=== PATIENT | male | born 1960 | race Caucasian/White ===

== ENCOUNTER 2016-06-09 16:35 | Inpatient (IN) | payer OTHER ==
[2016-06-09] MEDS ORDERED: ONDANSETRON HCL 4 MG/2 ML VIAL IV ONE (16:53)
[2016-06-09] MEDS ORDERED: HYDROmorphone 1 MG INJECTION IV ONE ×3 (16:53→20:47)
[2016-06-09] MEDS ORDERED: NS 1,000 ML IV ONE ×2 (16:53→19:38)
[2016-06-09] MEDS ORDERED: DIAZEPAM 10 MG/2 ML TUBEX IV ONE ×2 (16:59→19:38)
[2016-06-09] MEDS ORDERED: FENTANYL 100 MCG/2 ML VIAL IV ONE ×2 (17:32→18:30)
[2016-06-09 17:38] LABS: AUTOMATED BASOPHIL 0.5 % (0-2); AUTOMATED EOSINOPHIL 0.2 % (0-5); AUTOMATED LYMPH 9.6 % (17-44); AUTOMATED MONOCYTE 7.1 % (3-10); AUTOMATED NEUTROPHIL 82.6 % (45-76); MPV 9.6 fL (7.4-10.4)
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
[2016-06-09 17:50] LABS: BLOOD UREA NITROGEN 24 MG/DL (9-20); CALCIUM 9.7 MG/DL (8.4-10.2); CALCULATED OSMOLALITY 275 MOs/Kg (270-290); CHLORIDE 102 mEq/L (98-107); GLUCOSE 94 MG/DL (70-99); SODIUM LEVEL 141 mEq/L (137-146); TOTAL PROTEIN 7.8 G/DL (6.3-8.2)
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
[2016-06-09] MEDS ORDERED: CYCLOBENZAPRINE 10 MG TAB PO ONE (19:23)
[2016-06-09 19:34] LABS: ALL NEG? NO
[2016-06-09 19:39] LABS: LEUKOCYTES/URINE NEG (NEGATIVE); NITRITE/URINE NEG (NEGATIVE); URINE OCCULT BLOOD 1+ (NEG/TRACE)
[2016-06-09 19:41] LABS: MDMA* NEG (NEGATIVE); METHAMPHETAMINES NEG (NEGATIVE); OXYCODONE *POSITIVE* (NEGATIVE)
[2016-06-09] MEDS ORDERED: PROMETHAZINE 25 MG/ML VIAL IV PRN (20:57)
[2016-06-09] MEDS ORDERED: ZOLPIDEM TARTRATE 5 MG TAB PO PRN (20:57)
[2016-06-09] MEDS ORDERED: OXYCODONE HCL 5 MG TABLET PO PRN (20:57)
[2016-06-09] MEDS ORDERED: NALOXONE 0.4 MG/ML AMPULE IV SCH (21:00)
[2016-06-09] MEDS: OXYCODONE HCL 5 MG TABLET PO PRN (21:49)
[2016-06-09] MEDS: Docusate Sodium 100 MG CAP PO SCH (21:49)
[2016-06-09] MEDS ORDERED: Pharmacy Change IV Fluid Rate to KVO XX SCH (22:00)
[2016-06-09] MEDS ORDERED: Vaccine Screening Complete SCH (23:00)
[2016-06-10] MEDS: HYDROmorphone 1 MG INJECTION IV PRN ×4 (01:00→12:29)
[2016-06-10] MEDS: SODIUM CHLORIDE 0.9% 3 ML FLUSH FLUSH SCH ×2 (01:12→18:21)
[2016-06-10] MEDS: OXYCODONE HCL 5 MG TABLET PO PRN ×2 (01:18→06:03)
[2016-06-10] MEDS ORDERED: DIAZEPAM 10 MG/2 ML TUBEX IV PRN ×2 (02:15→02:16)
[2016-06-10] MEDS: OXYCODONE (OxyCONTIN) 10 MG TAB PO SCH ×3 (02:21→18:21)
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
[2016-06-10] MEDS ORDERED: DIPHENHYDRAMINE 50 MG/ML VIAL IV ONE (08:00)
[2016-06-10] MEDS ORDERED: FLU VACCINE (Afluria) 0.5 ML DOSE IM ONE (08:00)
[2016-06-10] MEDS ORDERED: DIAZEPAM 10 MG/2 ML TUBEX IM PRN ×2 (09:48)
[2016-06-10] MEDS: ONDANSETRON HCL 4 MG/2 ML VIAL IV PRN (11:46)
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
--- NOTE | 2016-06-10 12:16 | DIRPT ---
CLINICAL DATA: Chronic back pain worsening over the past 3 weeks. EXAM: MRI THORACIC SPINE WITHOUT AND WITH CONTRAST TECHNIQUE: Multiplanar and multiecho pulse sequences of the thoracic spine were obtained without and with intravenous contrast. CONTRAST: 17 cc MultiHance COMPARISON: None. FINDINGS: Normal overall alignment of thoracic vertebral bodies. They demonstrate normal marrow signal except for endplate reactive changes at T4-5 and a large hemangioma and T7. The facets are normally aligned. No foraminal lesions. The thoracic spinal cord demonstrates normal signal intensity. No cord lesions or syrinx. Bilateral airspace disease is noted in the lungs along with small effusions. Recommend clinical correlation and chest x-ray for correlation. Degenerative cervical spondylosis is noted with multilevel disc disease and facet disease. Small right paracentral disc protrusion at T2-3 with minimal impression on the ventral thecal sac. Shallow broad-based disc protrusion at T4-5 with flattening of the ventral thecal sac and narrowing of the ventral CSF space. Focal right paracentral disc protrusion at T5-6. Paracentral disc protrusions bilaterally at T6-7 with minimal impression on the thecal sac. Shallow disc protrusions paracentrally bilaterally at T7-8 with mild impression on the thecal sac. Focal central and slightly right paracentral disc protrusion at T9-10. IMPRESSION: Degenerative of disc disease and facet disease in the thoracic spine but normal alignment and no acute bony findings. Multilevel thoracic disc protrusions as detailed above. Electronically Signed By: Robert Jimenez M.D. On: 06/10/2016 12:13
[2016-06-10] MEDS: TAMSULOSIN HCL 0.4 MG CAP PO SCH (12:28)
[2016-06-10] MEDS: ACETAMINOPHEN 325 MG/TAB TABLET PO PRN ×2 (12:31→16:17)
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
[2016-06-10] MEDS ORDERED: NS 50 ML IV ONE (16:13)
[2016-06-10] MEDS ORDERED: HYDROCODONE 5 MG/ACETAMIN 325 MG TAB PO PRN (18:51)
[2016-06-10] MEDS ORDERED: TRAMADOL HCL 50 MG TAB PO PRN (18:51)
[2016-06-10] MEDS: METAXALONE 800 MG TAB PO PRN (21:32)
[2016-06-10] MEDS: GABAPENTIN 300 MG CAP PO SCH (21:32)
[2016-06-10] MEDS: Docusate Sodium 100 MG CAP PO SCH (21:32)
[2016-06-10] MEDS: ZOLPIDEM TARTRATE 5 MG TAB PO PRN (23:12)
[2016-06-11] MEDS: OXYCODONE (OxyCONTIN) 10 MG TAB PO SCH ×2 (03:53→11:04)
[2016-06-11] MEDS: METAXALONE 800 MG TAB PO PRN ×2 (05:17→16:18)
[2016-06-11] MEDS: SODIUM CHLORIDE 0.9% 3 ML FLUSH FLUSH SCH ×2 (05:17→18:32)
[2016-06-11 07:24] LABS: MPV 8.9 fL (7.4-10.4)
--- NOTE | 2016-06-11 07:25 | PCM.ORTHBL ---
- Subjective Daily Assessment - Patient: Reports: No new complaints, Still having pain, Tolerating Regular Diet, Nausea, Other (Denies chest pain. No numbness or tingling in LE.). Denies: Shortness of breath, Vomiting - Objective / Physical Exam Vital Signs: Temperature: 98.2 F (06/11/16 04:10) HR: 84 (06/11/16 04:10)RR: 18 (06/11/16 04: 10) BP: 135/81 (06/11/16 04:10)Pulse Ox: 94 (06/11/16 04:10) General: Alert, Oriented x3, Cooperative, No acute distress, Well appearing, Other (Appears more comfortable today) Musculoskeletal / Extremities: 2 plus Dorsalis Pedis Pulse. negative: Tenderness (no calf tenderness) Neurological: Positive Sensation First Dorsal Web Space, Sensation to light touch intact, Extensor Hallicus Longus Intact, Flexor Hallicus Longus Intact, Dorsiflexion Intact, Plantarflexion Intact Laboratory/Diagnostics Reviewed: 06/11/16 06:45 - Assessment and Plan (1) Acute low back pain Acute M54.5 - LOW BACK PAIN Present on Admission: Yes Plan: Continue pain management Medical management per hospitalist. Patient to have culture obtained by IR today, then plan for initiation of antibiotics. Patient will need ID follow-up at discharge. May require rehab placement. Avoid excessive movement of the spine
[2016-06-11 07:51] LABS: BLOOD UREA NITROGEN 19 MG/DL (9-20); CALCIUM 9.2 MG/DL (8.4-10.2); CALCULATED OSMOLALITY 261 MOs/Kg (270-290); CHLORIDE 96 mEq/L (98-107); GLUCOSE 110 MG/DL (70-99); SODIUM LEVEL 134 mEq/L (137-146)
[2016-06-11] MEDS: TAMSULOSIN HCL 0.4 MG CAP PO SCH (09:11)
--- NOTE | 2016-06-11 10:49 | GENMEDPROG ---
Chief Complaint: Diskitis Subjective Note: No acute events overnight, no fevers. Back pain is still quite severe and the patient is unable to move. Still neurologically intact, however. Notes Reviewed: Yes Events from last night noted and discussed with Clinical Staff Current Medication List: Reviewed DVT Prophylaxis: Yes - Physical Examination Vital Signs and I&O: Last Vital Signs Temp 98.2 F 06/11/16 04:10 Pulse 84 06/11/16 04:10 Resp 18 06/11/16 04:10 BP 135/81 06/11/16 04:10 Pulse Ox 94 06/11/16 04:10 Oxygen Pulse Oxygen Saturation 94 O2 Device Room Air Oxygen Flow Rate Fraction of Inspired Oxygen ( FIO2) Intake & Output 06/09/16 06/10/16 06/11/16 06/12/16 06:59 06:59 06:59 06:59 Intake Total 55 Output Total 800 Balance -745 Patient's weight 82.355 kg General: Alert, Oriented x3, Cooperative, No acute distress, Well appearing, Other (Appears more comfortable today) Neck: Normal Trachea alignment, Normal inspection Respiratory: Normal - CTA (Clear to auscultation blaterally,no wheezing,rales, rhonchi.No use of accessory muscles) Cardiovascular: Regular rate, No Gallops,Rubs/Murmurs GI: Normal bowel sounds, Soft, Non tender (non distended) Lab/DI/Studies Reviewed: Laboratory Tests 06/09/16 06/09/16 06/10/16 17:15 17:15 16:00 WBC 16.8 H Potassium BUN Creatinine Hemoglobin A1c 5.6 C-Reactive Prot, Quant 18.9 H 06/10/16 06/11/16 06/11/16 16:00 06:45 06:45 WBC 7.0 Potassium 4.2 BUN 19 Creatinine 1.00 Hemoglobin A1c C-Reactive Prot, Quant 168.2 H - Assessment (1) Lumbar discitis Acute M46.46 - DISCITIS, UNSPECIFIED, LUMBAR REGION Comment/Plan: Patient with acute worsening of back pain with the last 2 weeks, but no fevers or chills at home, no recent infections, no foreign bodies or other specific risk factor for diskitis. CRP is elevated. Peripheral blood cultures are pending, INR is normal. Awaiting CT-guided biopsy in IR today. (2) Intractable neuropathic pain of lumbosacral origin Acute M54.16 - RADICULOPATHY, LUMBAR REGION Comment/Plan: Management per orthopedic service (3) Leukocytosis Acute D72.829 - ELEVATED WHITE BLOOD CELL COUNT, UNSPECIFIED Total Time: 36
[2016-06-11] MEDS ORDERED: HYDROmorphone 1 MG INJECTION IV ONE (11:30)
[2016-06-11] MEDS ORDERED: LIDOCAINE 1% 30 ML VIAL (PRESERVATIVE FREE) ONE (13:01)
[2016-06-11] MEDS ORDERED: FENTANYL 100 MCG/2 ML VIAL ONE (14:05)
[2016-06-11] MEDS ORDERED: MIDAZOLAM 2 MG/2 ML VIAL ONE (14:05)
--- NOTE | 2016-06-11 15:03 | DIRPT ---
CLINICAL DATA: Abnormal MRI. Increased T2 signal at the L2-3 disc. Severe low back pain. EXAM: SPINE INTERVENTION FLUOROSCOPY TIME: One minutes MEDICATIONS AND MEDICAL HISTORY: Versed 2 mg, Fentanyl 100 mcg. Additional Medications: None. ANESTHESIA/SEDATION: Moderate sedation time: 45 minutes CONTRAST: None PROCEDURE: The procedure, risks, benefits, and alternatives were explained to the patient. Questions regarding the procedure were encouraged and answered. The patient understands and consents to the procedure. The back was prepped with Betadine in a sterile fashion, and a sterile drape was applied covering the operative field. A sterile gown and sterile gloves were used for the procedure. Under fluoroscopic guidance, an 18 gauge needle was inserted into the L2-3 disc via right posterior lateral approach. Fluid could not be aspirated. The needle was advanced back and forth several times within the disc space and removed. The needle was then lavaged with saline which was sent for culture. FINDINGS: Image demonstrates needle placement within the L2-3 nucleus pulposa. COMPLICATIONS: None IMPRESSION: Successful L2-3 disc aspiration as described. A sample was sent for culture. Electronically Signed By: Aakash Stevenson M.D. On: 06/11/2016 15:00
[2016-06-11] MEDS ORDERED: OXYCODONE HCL 5 MG TABLET PO PRN (17:09)
[2016-06-11] MEDS: OXYCODONE HCL 5 MG TABLET PO PRN (17:19)
[2016-06-11] MEDS: HYDROmorphone 1 MG INJECTION IV PRN (18:32)
[2016-06-11] MEDS ORDERED: NS 250 ML IV ONE (18:37)
[2016-06-11] MEDS: CEFTRIAXONE 1 GM in D5W 100 ML IV SCH (18:39)
[2016-06-11] MEDS: ZOLPIDEM TARTRATE 5 MG TAB PO PRN (20:06)
[2016-06-11] MEDS: GABAPENTIN 300 MG CAP PO SCH (20:07)
[2016-06-11] MEDS: Docusate Sodium 100 MG CAP PO SCH (20:07)
[2016-06-11] MEDS: ACETAMINOPHEN 325 MG/TAB TABLET PO PRN (20:13)
[2016-06-12] MEDS: METAXALONE 800 MG TAB PO PRN ×3 (03:46→17:44)
[2016-06-12] MEDS: OXYCODONE HCL 5 MG TABLET PO PRN ×3 (05:31→22:10)
[2016-06-12] MEDS: SODIUM CHLORIDE 0.9% 3 ML FLUSH FLUSH SCH ×2 (05:31→17:54)
[2016-06-12] MEDS: HYDROmorphone 1 MG INJECTION IV PRN ×5 (06:42→19:53)
--- NOTE | 2016-06-12 07:12 | PCM.ORTHBL ---
- Subjective Hospital Day #: 4 Daily Assessment - Patient: Reports: No new complaints, Awake Alert Oriented x4 , Still having pain (with back spasms), Tolerating Regular Diet, Afebrile, Other (denies chest pain). Denies: Shortness of breath, Nausea, Vomiting - Objective / Physical Exam Vital Signs: Temperature: 99 F (06/12/16 05:26) HR: 90 (06/12/16 05:26)RR: 16 (06/12/16 05:26 ) BP: 123/73 (06/12/16 05:26)Pulse Ox: 95 (06/12/16 05:26) General: Alert, Oriented x3, Cooperative, Well appearing Musculoskeletal / Extremities: 2 plus Dorsalis Pedis Pulse. negative: Tenderness (no calf tenderness) Neurological: Positive Sensation First Dorsal Web Space, Sensation to light touch intact, Extensor Hallicus Longus Intact, Flexor Hallicus Longus Intact, Dorsiflexion Intact, Plantarflexion Intact - Assessment and Plan (1) Acute low back pain Acute M54.5 - LOW BACK PAIN Present on Admission: Yes Plan: Continue pain management. Discussed medication change for his spasms. Will attempt Flexeril as he has had this previously Continue antibiotics per medicine. patient will need ID follow-up at d/c D/c plan likely for short term rehab.
[2016-06-12 07:23] LABS: MPV 8.7 fL (7.4-10.4)
[2016-06-12 07:38] LABS: BLOOD UREA NITROGEN 21 MG/DL (9-20); CALCIUM 9.6 MG/DL (8.4-10.2); CALCULATED OSMOLALITY 266 MOs/Kg (270-290); CHLORIDE 98 mEq/L (98-107); GLUCOSE 118 MG/DL (70-99); SODIUM LEVEL 136 mEq/L (137-146)
[2016-06-12] MEDS: CYCLOBENZAPRINE 10 MG TAB PO PRN ×2 (09:11→17:45)
[2016-06-12] MEDS: TAMSULOSIN HCL 0.4 MG CAP PO SCH (09:11)
[2016-06-12] MEDS: MAGNESIUM HYDROXIDE 30 ML BOTTLE PO PRN (09:13)
--- NOTE | 2016-06-12 13:51 | GENMEDPROG ---
Chief Complaint: Low back pain Subjective Note: Thankfully seems like his back pain is improving today. Hopefully this related to starting antibiotics yesterday. DVT Prophylaxis: Yes - Physical Examination Vital Signs and I&O: Last Vital Signs Temp 99 F 06/12/16 05:26 Pulse 90 06/12/16 05:26 Resp 16 06/12/16 05:26 BP 123/73 06/12/16 05:26 Pulse Ox 95 06/12/16 05:26 Oxygen Pulse Oxygen Saturation 95 O2 Device Room Air Oxygen Flow Rate Fraction of Inspired Oxygen ( FIO2) Intake & Output 06/10/16 06/11/16 06/12/16 06/13/16 06:59 06:59 06:59 06:59 Intake Total 55 1061 Output Total 800 2350 850 Balance -648 -8705 -510 Patient's weight 82.355 kg 82.781 kg General: Alert, Oriented x3, Cooperative, Well appearing Respiratory: Normal - CTA (Clear to auscultation blaterally,no wheezing,rales, rhonchi.No use of accessory muscles) Cardiovascular: Regular rate, No Gallops,Rubs/Murmurs GI: Normal bowel sounds, Soft, Non tender (non distended) Extremities/Musculoskeletal: Other (Normal Tone). negative: Edema, Cyanosis Skin: No rashes, No significant lesion Psych/Mental Status: Normal Affect (Fully oriented, Norla and appropriate affect ) Lab/DI/Studies Reviewed: Laboratory Tests 06/12/16 06/12/16 06:55 06:55 WBC 8.1 Hgb 15.3 Potassium 4.4 BUN 21 H Creatinine 1.00 - Assessment (1) Lumbar discitis Acute M46.46 - DISCITIS, UNSPECIFIED, LUMBAR REGION Comment/Plan: Patient with acute worsening of back pain with the last 2 weeks, but no fevers or chills at home, no recent infections, no foreign bodies or other specific risk factor for diskitis. CRP is elevated. Peripheral blood cultures are pending, INR is normal. CT-guided biopsy was performed on June 10, await culture information. Back pain is improving today, on empiric IV antibiotics. Order has been placed for PICC line. Physical therapy has been consulted, he will likely need rehabilitation placement. (2) Intractable neuropathic pain of lumbosacral origin Acute M54.16 - RADICULOPATHY, LUMBAR REGION Comment/Plan: Management per orthopedic service (3) Leukocytosis Acute D72.829 - ELEVATED WHITE BLOOD CELL COUNT, UNSPECIFIED
[2016-06-12] MEDS ORDERED: LIDOCAINE 1% 30 ML VIAL (PRESERVATIVE FREE) ONE (15:40)
[2016-06-12] MEDS: CEFTRIAXONE 1 GM in D5W 100 ML IV SCH (17:44)
[2016-06-12] MEDS: ONDANSETRON HCL 4 MG/2 ML VIAL IV PRN (20:10)
[2016-06-12] MEDS: Aluminum;Magnesium;Simethicone 30 ML UDC PO PRN (22:09)
[2016-06-12] MEDS: ZOLPIDEM TARTRATE 5 MG TAB PO PRN (22:10)
[2016-06-12] MEDS: Docusate Sodium 100 MG CAP PO SCH (22:11)
[2016-06-12] MEDS: GABAPENTIN 300 MG CAP PO SCH (22:12)
--- NOTE | 2016-06-12 22:45 | PCM.DCS92 ---
- Final/Secondary Discharge Diagnosis (1) Acute low back pain Inactive M54.5 - LOW BACK PAIN Present on Admission: Yes Discharge Disposition: Transfer to tertiary facility Discharge Condition: Stable Cognitive Discharge Status: Unimpaired Fuctional Discharge Status: Ambulatory Dysfunction Physician Follow up/Referrals: Kvng Collazo MD [Primary Care Provider] - One Week New Prescriptions: Cyclobenzaprine HCl [Flexeril] 10 mg PO Q8H #30 tablet Oxycodone Immediate Release [Oxycodone Immediate Release (OxyIR)] 5 - 10 mg PO Q4H PRN #60 tab PRN Reason: Pain Diet at Discharge: As Tolerated, Regular Activity: No Heavy Lifting, No Driving Call Office For: Worsening Symptoms, Wound is Draining Pus, Fever over 101 F, Fever over 100.5, Wound is Painful, Wound is Red, Weight Gain (see below), Pain Uncontrolled By Meds, Other (See Details) Discontinue use of:: Alcohol, All Illegal Substances, All Types of Tobacco - DC Summary Notes Hospital Course Note:: Discharge summary on patient named NILE STRONG admitted to [facility] on 06/10/16 by Meet Choudhury DO. Date of discharge is [06/22/15]. Hospital course uneventful. Continue pain management. Continue PT. Continue antibiotics. [facility]. To follow-up in our office as needed for any persistent problems following treatment of his discitis. We can consider further work-up of his stenosis and disc bulging at that time if pain persists. Wound Care Surgical Site: No Remove Transdermal Scopalamine patch if present: YES Medication Instructions: Take Stool Softener Activity as Tolerated: Yes Weight Bearing: As Tolerated (No heavy lifting greater than 20 pounds.) - Physical Exam Vital Signs: Initial Vitals Temperature 97.9 F 06/09/16 16:38 Pulse Rate 96 06/09/16 16:38 Respiratory Rate 32 H 06/09/16 16:38 Blood Pressure 146/91 06/09/16 16:38 Pulse Oxygen Saturation 97 06/09/16 16:38 Constitutional: No apparent distress, Alert, Well appearing Oriented to: Time, Person, Place - HEENT Head: Normal - Musculoskeletal Extremities: Pedal Pulse. negative: Calf Tenderness Spine: limited range of motion - Neurologic Memory Impaired: Normal Cranial Nerve: Normal Cerebellar: Normal Mood Description: Normal Thought: Coherent Perception: Normal
[2016-06-13] MEDS: HYDROmorphone 1 MG INJECTION IV PRN ×8 (02:50→21:38)
[2016-06-13] MEDS: SODIUM CHLORIDE 0.9% 3 ML FLUSH FLUSH SCH ×2 (05:33→17:29)
[2016-06-13] MEDS: CYCLOBENZAPRINE 10 MG TAB PO PRN ×2 (05:33→17:27)
[2016-06-13 07:20] LABS: MPV 8.9 fL (7.4-10.4)
[2016-06-13 07:25] LABS: BLOOD UREA NITROGEN 26 MG/DL (9-20); CALCIUM 9.3 MG/DL (8.4-10.2); CALCULATED OSMOLALITY 266 MOs/Kg (270-290); CHLORIDE 96 mEq/L (98-107); GLUCOSE 108 MG/DL (70-99); SODIUM LEVEL 135 mEq/L (137-146)
--- NOTE | 2016-06-13 09:04 | GENMEDPROG ---
Chief Complaint: discitis with Strep mitis Subjective Note: c/o back pain and muscle spasms Currently: Denies: Matt PT/OT, Ambulating DVT Prophylaxis: Yes - Physical Examination Vital Signs and I&O: Last Vital Signs Temp 98.4 F 06/13/16 05:21 Pulse 95 06/13/16 05:21 Resp 20 06/13/16 05:21 BP 109/71 06/13/16 05:21 Pulse Ox 95 06/13/16 05:21 Oxygen Pulse Oxygen Saturation 95 O2 Device Room Air Oxygen Flow Rate Fraction of Inspired Oxygen ( FIO2) Intake & Output 06/10/16 06/11/16 06/12/16 06/13/16 23:59 23:59 23:59 23:59 Intake Total 50 946 1396 64 Output Total 2650 2550 500 Balance 49 -6421 -1154 -436 Patient's weight 82.355 kg 82.781 kg 81.306 kg General: Alert, Oriented x3, Cooperative, Moderate distress, Weakness HEENT: Normal, PERRLA, EOMI, Anicteric Sclera, Mucous membr. moist/pink Neck: Normal Trachea alignment, Normal inspection, No Masses palpable Lymphatics: Normal Respiratory: Normal - CTA (Clear to auscultation blaterally,no wheezing,rales, rhonchi.No use of accessory muscles) Cardiovascular: Regular rate, Normal S1, No Gallops,Rubs/Murmurs, Normal S2 GI: Normal bowel sounds, Soft, Non tender (non distended) Extremities/Musculoskeletal: Muscle Tone (normal), FROM, Other (tenderness along paraspinous muscles). negative: Edema, Cyanosis Skin: No rashes, No significant lesion Neurological: Normal speech, Normal tone, Cranial nerves 3-12 NL, Other ( reports increased back pain with movement of legs) Psych/Mental Status: Normal Affect (Fully oriented, Norla and appropriate affect ), Anxious Lab/DI/Studies Reviewed: Laboratory Tests 06/13/16 06/13/16 06:54 06:54 WBC 8.7 Hgb 15.2 Hct 45.2 Plt Count 240 Sodium 135 L Potassium 4.3 Chloride 96 L Carbon Dioxide 27 Anion Gap 16 BUN 26 H Creatinine 1.00 Estimated GFR (MDRD) > 60 Glucose 108 H Calculated Osmolality 266 L Calcium 9.3 Microbiology 06/11/16 15:00 Aspirate - Disk Tissue Culture - Preliminary Strep mitis/oralis - Assessment (1) Lumbar discitis Acute M46.46 - DISCITIS, UNSPECIFIED, LUMBAR REGION Comment/Plan: Patient with acute worsening of back pain with the last 2 weeks, but no fevers or chills at home, he did have an infected tooth pulled about a month ago. Now with acute discitis culture + for Strep mitis. Patient will need 8 weeks of IV Rocephin. Order has been placed for PICC line. Physical therapy has been consulted, he will likely need rehabilitation placement. (2) Intractable neuropathic pain of lumbosacral origin Acute M54.16 - RADICULOPATHY, LUMBAR REGION Comment/Plan: Needs physical therapy for strengthening and rehabilitation (3) Muscle spasm of back Acute M62.830 - MUSCLE SPASM OF BACK Comment/Plan: Will continue analgesics and add antispasmodics. (4) Acute low back pain Acute M54.5 - LOW BACK PAIN Comment/Plan: Encourage patient to try to move as soon as he can stand it. Take analgesics prior to physical therapy session.
[2016-06-13] MEDS: TAMSULOSIN HCL 0.4 MG CAP PO SCH (09:27)
--- NOTE | 2016-06-13 11:12 | PCM.ORTHBL ---
- Subjective Hospital Day #: 4 Daily Assessment - Patient: Reports: Still having pain, Afebrile, Other ( Patient seen and examined this morning. He continues to have significant pain in his lumbar spine. Complains of spasm. He has been unable to receive his PICC line because of increased pain while attempts to transfer to the bed that he must lay on to have his PICC placed) - Objective / Physical Exam Vital Signs: Temperature: 98.4 F (06/13/16 05:21) HR: 95 (06/13/16 05:21)RR: 20 (06/13/16 05: 21) BP: 109/71 (06/13/16 05:21)Pulse Ox: 95 (06/13/16 05:21) General: Alert, Oriented x3, Cooperative Musculoskeletal / Extremities: Motor 5/5 throughout Neurological: Positive Sensation First Dorsal Web Space, Sensation to light touch intact, Extensor Hallicus Longus Intact, Flexor Hallicus Longus Intact, Dorsiflexion Intact, Plantarflexion Intact Spine: muscle spasm Skin: Warm,Dry and Intact Laboratory/Diagnostics Reviewed: 06/13/16 06:54 06/13/16 06:54 - Assessment and Plan (1) Lumbar discitis Acute M46.46 - DISCITIS, UNSPECIFIED, LUMBAR REGION Plan: 1. Lumbar diskitis -continue IV antibiotics. Awaiting PICC line placement -[facility] facility/rehab facility placement once PICC line was placed -continue frequent neurovascular checks. Presently the patient has no signs or symptoms of cauda equina syndrome or motor/sensory deficits -pain control
[2016-06-13] MEDS: CEFTRIAXONE 1 GM in D5W 100 ML IV SCH (17:27)
[2016-06-13] MEDS: [UNRECOGNIZED DRUG - OTHER] PO SCH (18:04)
[2016-06-13] MEDS: GABAPENTIN 300 MG CAP PO SCH (19:31)
[2016-06-13] MEDS: Docusate Sodium 100 MG CAP PO SCH (19:31)
[2016-06-13] MEDS: ZOLPIDEM TARTRATE 5 MG TAB PO PRN (21:47)
[2016-06-14] MEDS: HYDROmorphone 1 MG INJECTION IV PRN ×7 (00:08→14:20)
[2016-06-14] MEDS: OXYCODONE HCL 5 MG TABLET PO PRN ×4 (04:08→20:13)
[2016-06-14] MEDS: CYCLOBENZAPRINE 10 MG TAB PO PRN (04:38)
[2016-06-14] MEDS: SODIUM CHLORIDE 0.9% 3 ML FLUSH FLUSH SCH ×2 (06:19→17:58)
[2016-06-14] MEDS: CEFTRIAXONE 2 GM in D5W 100 ML IV SCH (06:19)
[2016-06-14] MEDS: TRAMADOL HCL 50 MG TAB PO SCH ×3 (06:36→23:12)
[2016-06-14] MEDS: TAMSULOSIN HCL 0.4 MG CAP PO SCH (08:41)
[2016-06-14] MEDS: [UNRECOGNIZED DRUG - OTHER] PO SCH ×3 (10:33→18:06)
--- NOTE | 2016-06-14 10:33 | PCM.ORTHBL ---
- Subjective Hospital Day #: 4 Daily Assessment - Patient: Reports: Still having pain (Pt continues to have significant pain/spasm. No new neurological symptoms. No motor/sensory deficits) . Denies: Nausea, Vomiting - Objective / Physical Exam Vital Signs: Temperature: 98.3 F (06/14/16 05:00) HR: 96 (06/14/16 05:00)RR: 18 (06/14/16 05: 00) BP: 125/82 (06/14/16 05:00)Pulse Ox: 94 (06/14/16 05:00) General: Alert, Oriented x3, Cooperative, Mild distress Musculoskeletal / Extremities: 2 plus Dorsalis Pedis Pulse, Tenderness (Lumbar spine Spasm), Motor 5/5 throughout Neurological: Positive Sensation First Dorsal Web Space, Sensation to light touch intact, Extensor Hallicus Longus Intact, Flexor Hallicus Longus Intact, Dorsiflexion Intact, Plantarflexion Intact Laboratory/Diagnostics Reviewed: 06/13/16 06:54 06/13/16 06:54 - Assessment and Plan (1) Lumbar discitis Acute M46.46 - DISCITIS, UNSPECIFIED, LUMBAR REGION Plan: 1. Lumbar diskitis -continue IV antibiotics. Awaiting PICC line placement -[facility] facility/rehab facility placement once PICC line was placed -continue frequent neurovascular checks. Presently the patient has no signs or symptoms of cauda equina syndrome or motor/sensory deficits -pain control
--- NOTE | 2016-06-14 11:26 | GENMEDPROG ---
Chief Complaint: discitis, back pain/muscle spasms Subjective Note: Patient continues to have severe muscle spasms and back pain. Notes Reviewed: Yes Events from last night noted and discussed with Clinical Staff Current Medication List: Reviewed Currently: Reports: Other (SEVERE MUSCLE SPASMS AND BACK PAIN; patient nauseated , unable to eat). Denies: Matt PT/OT, Ambulating DVT Prophylaxis: Yes - Physical Examination Vital Signs and I&O: Last Vital Signs Temp 98.3 F 06/14/16 05:00 Pulse 96 06/14/16 05:00 Resp 18 06/14/16 05:00 BP 125/82 06/14/16 05:00 Pulse Ox 94 06/14/16 05:00 Oxygen Pulse Oxygen Saturation 94 O2 Device Room Air Oxygen Flow Rate Fraction of Inspired Oxygen ( FIO2) Intake & Output 06/11/16 06/12/16 06/13/16 06/14/16 23:59 23:59 23:59 23:59 Intake Total 946 1396 586 194 Output Total 2650 2550 2060 850 Balance -1704 -8984 -1474 -656 Patient's weight 82.355 kg 82.781 kg 81.306 kg 80.739 kg General: Alert, Oriented x3, Cooperative, Moderate distress HEENT: PERRLA, EOMI, Anicteric Sclera, Mucous membr. moist/pink Neck: Full range of motion, Normal Trachea alignment, Normal inspection, No Masses palpable, Muscle spasm Lymphatics: Normal Respiratory: Accessory Muscle Use, Diminished Cardiovascular: Regular rate and rhythm, Normal S1, Normal S2, Good Pedal Pulses GI: Normal bowel sounds, Soft, Non tender, No masses Extremities/Musculoskeletal: Normal pulses, Other (tender at lumbar curvature over L1-L-3, rigid muscle spasm) Skin: Warm,Dry and Intact, No breakdown Neurological: Normal speech, Strength at 5/5 X4 ext, Cranial nerves 3-12 NL Psych/Mental Status: Anxious - Assessment (1) Lumbar discitis Acute M46.46 - DISCITIS, UNSPECIFIED, LUMBAR REGION Comment/Plan: Patient with acute worsening of back pain with the last 2 weeks, but no fevers or chills at home, he did have an infected tooth pulled about a month ago. Now with acute discitis, culture + for Strep mitis. Patient will need 8 weeks of IV Rocephin. Order has been placed for PICC line. Physical therapy has been consulted, he will likely need rehabilitation placement. (2) Intractable neuropathic pain of lumbosacral origin Acute M54.16 - RADICULOPATHY, LUMBAR REGION Comment/Plan: Still with severe muscle spasm. Will give IV diazepam to help relax muscles. Increase dose of analgesics. Needs physical therapy for strengthening and rehabilitation but unable to tolerate yet. (3) Muscle spasm of back Acute M62.830 - MUSCLE SPASM OF BACK Comment/Plan: Will give IV diazepam to help relax muscles. Increase dose of analgesics. Will continue analgesics and add antispasmodics. (4) Acute low back pain Acute M54.5 - LOW BACK PAIN Comment/Plan: Encourage patient to try to move as soon as he can stand it. Take analgesics prior to physical therapy session. - Plan Transfer to ICU due to policy that IV valium can not be given outside ICU. Case Care Discussed with: Nursing Staff, Other (Pharmacy) Education/Counseling Given To: Patient, Family Member Education/Counseling Given Regarding: Diagnosis, Treatment, Prognosis Total Time: 35 min Critical Care: No Couseling Time (>50% in counseling/coordination): No Code: 50367 (12+)
[2016-06-14] MEDS ORDERED: HYDROmorphone 2 MG TAB PO PRN (17:34)
[2016-06-14] MEDS ORDERED: HYDROmorphone 1 MG INJECTION IV PRN (17:35)
[2016-06-14] MEDS: Aluminum;Magnesium;Simethicone 30 ML UDC PO PRN (18:06)
[2016-06-14] MEDS ORDERED: DIAZEPAM 10 MG/2 ML TUBEX ONE (19:04)
[2016-06-14] MEDS: DIAZEPAM 10 MG/2 ML TUBEX IV PRN (19:17)
[2016-06-14] MEDS ORDERED: HYDROmorphone 1 MG INJECTION IV ONE (19:48)
[2016-06-14] MEDS ORDERED: BACLOFEN 10 MG TAB PO ONE (19:51)
[2016-06-14] MEDS: METAXALONE 800 MG TAB PO PRN (20:11)
[2016-06-14] MEDS: GABAPENTIN 300 MG CAP PO SCH (20:13)
[2016-06-14] MEDS ORDERED: FENTANYL 100 MCG/2 ML VIAL IV ONE (20:59)
[2016-06-14] MEDS ORDERED: CHLORHEXIDINE (HIBICLENS) 4 OZ BOTTLE TOP SCH (21:00)
[2016-06-14] MEDS: FENTANYL 100 MCG/2 ML VIAL IV PRN (22:35)
[2016-06-14] MEDS: CHLORHEXIDINE (HIBICLENS) 4 OZ BOTTLE TOP SCH (23:08)
[2016-06-14] MEDS: Docusate Sodium 100 MG CAP PO SCH (23:08)
[2016-06-14] MEDS: HYDROmorphone 1 MG INJECTION IV SCH (23:11)
[2016-06-15] MEDS: HYDROmorphone 1 MG INJECTION IV SCH ×12 (01:06→22:14)
[2016-06-15] MEDS: FENTANYL 100 MCG/2 ML VIAL IV PRN ×4 (02:16→16:42)
[2016-06-15] MEDS: CEFTRIAXONE 2 GM in D5W 100 ML IV SCH (05:36)
[2016-06-15] MEDS: TRAMADOL HCL 50 MG TAB PO SCH ×3 (05:51→22:15)
[2016-06-15] MEDS: SODIUM CHLORIDE 0.9% 3 ML FLUSH FLUSH SCH ×2 (05:51→16:02)
[2016-06-15] MEDS: [UNRECOGNIZED DRUG - OTHER] PO SCH ×3 (07:48→17:29)
[2016-06-15] MEDS: TAMSULOSIN HCL 0.4 MG CAP PO SCH (08:13)
[2016-06-15 09:43] LABS: AUTOMATED BASOPHIL 0.4 % (0-2); AUTOMATED EOSINOPHIL 1.1 % (0-5); AUTOMATED MONOCYTE 13.8 % (3-10); AUTOMATED NEUTROPHIL 75.7 % (45-76); MPV 8.6 fL (7.4-10.4)
--- NOTE | 2016-06-15 10:14 | GENMEDPROG ---
Chief Complaint: Acute lumbar discitis, Strep mitis organism, low back pain/muscle spasm, Subjective Note: Patient is moderately more comfortable today. Still having severe back spasms. Notes Reviewed: Yes Events from last night noted and discussed with Clinical Staff Current Medication List: Reviewed Currently: Reports: Other (SEVERE MUSCLE SPASMS AND BACK PAIN; patient nauseated , unable to eat). Denies: Matt PT/OT, Ambulating DVT Prophylaxis: Yes - Physical Examination Vital Signs and I&O: Last Vital Signs Temp 98.9 F 06/15/16 07:59 Pulse 87 06/15/16 09:45 Resp 19 06/15/16 07:00 BP 122/76 06/15/16 09:30 Pulse Ox 98 06/15/16 09:30 Oxygen Pulse Oxygen Saturation 98 O2 Device Room Air Oxygen Flow Rate Fraction of Inspired Oxygen ( FIO2) Intake & Output 06/12/16 06/13/16 06/14/16 06/15/16 23:59 23:59 23:59 23:59 Intake Total 1396 586 535 595 Output Total 2550 2060 2100 650 Balance -1154 -1474 -1565 -55 Patient's weight 82.781 kg 81.306 kg 80.739 kg General: Alert, Oriented x3, Cooperative, Moderate distress HEENT: PERRLA, EOMI, Anicteric Sclera, Mucous membr. moist/pink Neck: Full range of motion, Normal Trachea alignment, Normal inspection, No Masses palpable, Muscle spasm Lymphatics: Normal Respiratory: Normal - CTA, Diminished Cardiovascular: Regular rate and rhythm, Normal S1, Normal S2, Good Pedal Pulses GI: Normal bowel sounds, Soft, Non tender, No masses Extremities/Musculoskeletal: Normal pulses, Muscle Tone (increased in abd, back, lower extremities bilat), Other (tender at lumbar curvature over L1-L-3, rigid muscle spasm) Skin: Warm,Dry and Intact, No breakdown Neurological: Normal speech, Strength at 5/5 X4 ext (moving all extremities spontaneously, but guarding back), Cranial nerves 3-12 NL. negative: Normal tone (tone increased- has spasticity in lower extremities bilateral), Reflexes 2 + (4+ DTR's patellar tendon bilateral, Achilles bilat) Psych/Mental Status: Anxious Lab/DI/Studies Reviewed: Laboratory Tests 06/15/16 06/15/16 09:15 09:15 WBC 8.9 Hgb 16.2 Hct 47.1 Plt Count 277 Neut % (Auto) 75.7 Lymph % (Auto) 9.0 L [place] % (Auto) 13.8 H C-Reactive Prot, Quant 87.0 H - Assessment (1) Lumbar discitis Acute M46.46 - DISCITIS, UNSPECIFIED, LUMBAR REGION Comment/Plan: Patient with acute worsening of back pain with the last 2 weeks, but no fevers or chills at home, he did have an infected tooth pulled about a month ago. Now with acute discitis, culture + for Strep mitis. Patient will need 8 weeks of IV Rocephin. Order has been placed for PICC line. Literature reviewed: recommended strict bedrest for first 10 days, back brace to stabilize spine, and use of narcotic analgesics for acute pain relief. (2) Intractable neuropathic pain of lumbosacral origin Acute M54.16 - RADICULOPATHY, LUMBAR REGION Comment/Plan: Still with severe muscle spasm. Will give IV diazepam to help relax muscles. Increase dose of analgesics. Needs back brace to stabilize spine. Discuss with orthopedics. Will place on bedrest for the next 5-7 days until patient's pain is under better control. (3) Muscle spasm of back Acute M62.830 - MUSCLE SPASM OF BACK Comment/Plan: Will give IV diazepam to help relax muscles. Increase dose of analgesics. Will continue analgesics and add antispasmodics. (4) Acute low back pain Acute M54.5 - LOW BACK PAIN Comment/Plan: Per current literature it is better to keep patient at bedrest for first 7-10 days and stabilize the spine with a brace. Use adequate analgesia.
[2016-06-15] MEDS: Fluconazole 200 mg in NS 200 MG/100 ML ML IV SCH (12:23)
[2016-06-15] MEDS: DIAZEPAM 10 MG/2 ML TUBEX IV PRN ×2 (13:02→20:36)
--- NOTE | 2016-06-15 13:17 | PCM.ORTHBL ---
- Subjective Hospital Day #: 5 Daily Assessment - Patient: Reports: Still having pain, Other (Pt seen and examined. He was transferred to ICU due to unremitting pain/continuous monitoring, and need for frequent IV antispasmotic medications. Pt denies having any new lower extremity weakness, numbness, tingling, change in bowel/ bladder) - Objective / Physical Exam Vital Signs: Temperature: 98.3 F (06/15/16 11:00) HR: 85 (06/15/16 13:00)RR: 18 (06/15/16 11: 00) BP: 109/75 (06/15/16 13:00)Pulse Ox: 98 (06/15/16 13:00) General: Alert, Oriented x3, Moderate distress Musculoskeletal / Extremities: 2 plus Dorsalis Pedis Pulse, Motor 5/5 throughout (bilateral lower extremity. No motor/sensory deficits. Neuro exam without change.) Neurological: Positive Sensation First Dorsal Web Space, Sensation to light touch intact, Extensor Hallicus Longus Intact, Flexor Hallicus Longus Intact, Dorsiflexion Intact, Plantarflexion Intact Spine: muscle spasm Skin: Warm,Dry and Intact Laboratory/Diagnostics Reviewed: 06/15/16 09:15 06/13/16 06:54 CRP 87(decreased) - Assessment and Plan (1) Lumbar discitis Acute M46.46 - DISCITIS, UNSPECIFIED, LUMBAR REGION Plan: 1. Lumbar diskitis -continue IV antibiotics. Awaiting PICC line placement -half-way facility/rehab facility placement once PICC line was placed -continue frequent neurovascular checks. Presently the patient has no signs or symptoms of cauda equina syndrome or motor/sensory deficits -pain control -order LSO brace
[2016-06-15] MEDS: OXYCODONE (OxyCONTIN) 10 MG TAB PO SCH ×2 (14:55→22:15)
[2016-06-15] MEDS: ONDANSETRON HCL 4 MG/2 ML VIAL IV PRN (14:55)
[2016-06-15] MEDS: Docusate Sodium 100 MG CAP PO SCH ×2 (20:10)
[2016-06-15] MEDS: GABAPENTIN 300 MG CAP PO SCH (20:11)
[2016-06-16] MEDS: HYDROmorphone 1 MG INJECTION IV SCH ×12 (01:37→22:10)
[2016-06-16] MEDS: CHLORHEXIDINE (HIBICLENS) 4 OZ BOTTLE TOP SCH ×2 (02:09→22:18)
[2016-06-16] MEDS: METAXALONE 800 MG TAB PO PRN (02:12)
[2016-06-16 05:53] LABS: AUTOMATED BASOPHIL 0.5 % (0-2); AUTOMATED EOSINOPHIL 2.4 % (0-5); AUTOMATED LYMPH 14.8 % (17-44); AUTOMATED MONOCYTE 16.5 % (3-10); AUTOMATED NEUTROPHIL 65.8 % (45-76); MPV 8.9 fL (7.4-10.4)
[2016-06-16] MEDS: OXYCODONE (OxyCONTIN) 10 MG TAB PO SCH ×3 (06:36→22:14)
[2016-06-16] MEDS: CEFTRIAXONE 2 GM in D5W 100 ML IV SCH (06:36)
[2016-06-16] MEDS: SODIUM CHLORIDE 0.9% 3 ML FLUSH FLUSH SCH ×2 (06:44→17:27)
[2016-06-16] MEDS: TRAMADOL HCL 50 MG TAB PO SCH ×3 (06:45→22:19)
--- NOTE | 2016-06-16 07:17 | PCM.ORTHBL ---
- Subjective Hospital Day #: 6 Daily Assessment - Patient: Reports: Awake Alert Oriented x4, Still having pain , Pain is less, Tolerating Regular Diet. Denies: Shortness of breath, Nausea, Vomiting - Objective / Physical Exam Vital Signs: Temperature: 98.7 F (06/16/16 06:00) HR: 89 (06/16/16 06:32)RR: 20 (06/16/16 06: 32) BP: 126/69 (06/16/16 06:32)Pulse Ox: 96 (06/16/16 06:32) General: Alert, Oriented x3, Cooperative, No acute distress, Well appearing Musculoskeletal / Extremities: 2 plus Dorsalis Pedis Pulse. negative: Tenderness (no calf tenderness) Neurological: Positive Sensation First Dorsal Web Space, Sensation to light touch intact, Extensor Hallicus Longus Intact, Flexor Hallicus Longus Intact, Dorsiflexion Intact, Plantarflexion Intact - Assessment and Plan (1) Acute low back pain Acute M54.5 - LOW BACK PAIN Present on Admission: Yes Plan: Continue IV antibiotics. PICC line placement Continue pain management Progressive mobilization with brace Recommend he be fitted for a TLSO brace D/c planning, will need SNF placement.
--- NOTE | 2016-06-16 08:06 | PCM.ORTHBL ---
- Subjective Chief Complaint: Lumbar spine discitis Hospital Day #: 6 Post Op Day: 0 Daily Assessment - Patient: Reports: No new complaints, Pain is less, Afebrile, No Bowel Movement - Objective / Physical Exam Vital Signs: Temperature: 97.8 F (06/16/16 07:00) HR: 80 (06/16/16 07:00)RR: 18 (06/16/16 07: 00) BP: 125/64 (06/16/16 07:00)Pulse Ox: 97 (06/16/16 07:00) General: Alert, Oriented x3, Cooperative, No acute distress Musculoskeletal / Extremities: Motor 5/5 throughout Neurological: Positive Sensation First Dorsal Web Space, Sensation to light touch intact, Extensor Hallicus Longus Intact, Flexor Hallicus Longus Intact, Dorsiflexion Intact, Plantarflexion Intact Plan: Neuro exam unchanged/ CRP down will recommend progressive mobilization and transfer to SNF
[2016-06-16] MEDS: Docusate Sodium 100 MG CAP PO SCH ×3 (08:47→22:09)
[2016-06-16] MEDS: [UNRECOGNIZED DRUG - OTHER] PO SCH ×3 (08:47→17:40)
[2016-06-16] MEDS: TAMSULOSIN HCL 0.4 MG CAP PO SCH (08:48)
--- NOTE | 2016-06-16 11:00 | CAPUECHO ---
INDICATION: DISCITIS IN BACK, R/O ENDOCARDITIS HEIGHT: 182.9 cm (6 ft 0.0 in) WEIGHT: 80.7 kg (178.0 lbs) BP: 123/73 BSA: 2.763165 m MEASUREMENTS 2D RVIDd: 2.7 cm LVOT Diam: 2.0 cm LA Diam: 2.7 cm EF Biplane: 65.22 % LAESV MOD A4C: 29.2 ml LAESV MOD A2C: 14.4 ml LAESV Index (A-L): 13.05 ml/m M-MODE IVSd: 1.1 cm LVIDd: 3.4 cm LVPWd: 1.1 cm LVIDs: 2.4 cm EF(Teich): 58 % Ao Diam: 3.9 cm LA Diam: 3.1 cm DOPPLER MV E Bernard: 0.48 m/s MV A Bernard: 0.50 m/s MV PHT: 68.28 ms MVA By PHT: 3.22 cm LVOT Vmax: 0.67 m/s AV Vmax: 1.09 m/s CASI Vmax, Pt: 1.98 cm TR Vmax: 1.42 m/s TR maxP mmHg RVSP: 22.71 mmHg FINDINGS ------- Procedure:2D images, m-mode, color and spectral Doppler were obtained and reviewed. ECG rhythm:Sinus rhythm. Study quality:This was a technically difficult study with suboptimal views. Patient has limited pos itioning secondary to discitis. Left Ventricle:The left ventricular size is normal. Left ventricular wall thickness is normal. T here is normal global left ventricular contractility in all visualized segments. Overall left ve ntricular systolic function is normal with, an EF between 60 - 65 %. The diastolic filling pattern indicates impaired relaxation. Right Ventricle:The right ventricle is normal in size and function. Left Atrium:The left atrium is normal in size. Right Atrium:The right atrium is normal in size and function. Septum intact. Aortic Valve:The aortic valve is trileaflet with mild aortic valve sclerosis, good mobility, no r egurgitation. Mitral Valve:Normal appearing mitral valve. No mitral regurgitation. No vegetation. Tricuspid Valve:The tricuspid valve appears structurally normal. Trace tricuspid regurgitation pre sent. The right ventricular systolic pressure, as measured by Doppler, is 23mmHg. Pulmonic Valve:The pulmonic valve is normal. There is no pulmonic regurgitation present. Aorta:The aortic root, ascending aorta and aortic arch appear normal. IVC:No views of IVC. Pericardium:There is a small, generalized pericardial effusion present, no evidence of tamponade. CONCLUSIONS 1. technically difficult, suboptimal study 2. normal left ventricular size /function, no segmen nelda abnormality identified 3. normal RV function, mild TR, normal pulm artery pressure 4. mild aortic sclerosis 5. small pericardial effusion, no signs of tamponade or constriction 6. no v egetations, masses or significant valvular regurgitation. Electronically Signed By: Rogelio Hernandez MD-- Electronically Signed On: 10:56:03
[2016-06-16] MEDS: DIAZEPAM 10 MG/2 ML TUBEX IV PRN (12:01)
[2016-06-16] MEDS: Fluconazole 200 mg in NS 200 MG/100 ML ML IV SCH (12:02)
--- NOTE | 2016-06-16 13:55 | GENMEDPROG ---
Currently: Reports: Other (SEVERE MUSCLE SPASMS AND BACK PAIN; patient nauseated , unable to eat). Denies: Matt PT/OT, Ambulating DVT Prophylaxis: Yes - Physical Examination Vital Signs and I&O: Last Vital Signs Temp 97.8 F 06/16/16 11:00 Pulse 100 06/16/16 11:00 Resp 18 06/16/16 07:00 BP 124/80 06/16/16 11:00 Pulse Ox 92 06/16/16 11:00 Oxygen Pulse Oxygen Saturation 92 O2 Device Nasal Cannula Oxygen Flow Rate 2 Fraction of Inspired Oxygen ( FIO2) Intake & Output 06/13/16 06/14/16 06/15/16 06/16/16 23:59 23:59 23:59 23:59 Intake Total 459 744 0670 543 Output Total 2060 2100 1575 1050 Balance -1474 -1565 -521 -507 Patient's weight 81.306 kg 80.739 kg General: Alert, Oriented x3, Cooperative, No acute distress, Well appearing HEENT: Normal, PERRLA, EOMI, Anicteric Sclera, Mucous membr. moist/pink, Normocephalic Neck: Normal inspection, No Masses palpable, Limited range of motion, Muscle spasm Lymphatics: Normal Respiratory: Normal - CTA Cardiovascular: Regular rate and rhythm, Normal S1, Normal S2 GI: Soft, Non tender, No masses. negative: Normal bowel sounds (diminished) Extremities/Musculoskeletal: Normal pulses, Muscle Tone (increased in lumbar area and abdomen), Other (tenderness and muscle spasm in lumbar spine). negative: Tenderness, Swelling Skin: Warm,Dry and Intact, No breakdown Neurological: Normal speech, Cranial nerves 3-12 NL Psych/Mental Status: Appropriate, Normal Affect, Cooperative Lab/DI/Studies Reviewed: Laboratory Tests 06/16/16 06/16/16 05:35 05:35 WBC 7.5 Hgb 15.6 Hct 46.2 Plt Count 272 Neut % (Auto) 65.8 Lymph % (Auto) 14.8 L [place] % (Auto) 16.5 H Eos % (Auto) 2.4 ESR 40 H C-Reactive Prot, Quant 111.5 H - Assessment (1) Lumbar discitis Acute M46.46 - DISCITIS, UNSPECIFIED, LUMBAR REGION Comment/Plan: Patient with acute worsening of back pain with the last 2 weeks, but no fevers or chills at home, he did have an infected tooth pulled about a month ago. Now with acute discitis, culture + for Strep mitis. Patient will need 8 weeks of IV Rocephin. Order has been placed for PICC line. Literature reviewed: recommended strict bedrest for first 10 days, back brace to stabilize spine, and use of narcotic analgesics for acute pain relief. (2) Intractable neuropathic pain of lumbosacral origin Acute M54.16 - RADICULOPATHY, LUMBAR REGION Comment/Plan: Still with severe muscle spasm. Will give IV diazepam to help relax muscles. Increase dose of analgesics. Needs back brace to stabilize spine. Discuss with orthopedics. Will place on bedrest for the next 5-7 days until patient's pain is under better control. (3) Muscle spasm of back Acute M62.830 - MUSCLE SPASM OF BACK Comment/Plan: Will give IV diazepam to help relax muscles. Increase dose of analgesics. Will continue analgesics and add antispasmodics. (4) Acute low back pain Acute M54.5 - LOW BACK PAIN Comment/Plan: Per current literature it is better to keep patient at bedrest for first 7-10 days and stabilize the spine with a brace. Use adequate analgesia. Case Care Discussed with: Patient, Consultants, Nursing Staff, Physical Therapy , Resource Management Education/Counseling Given To: Patient Education/Counseling Given Regarding: Diagnosis, Treatment, Prognosis Total Time: 20 min Critical Care: No Couseling Time (>50% in counseling/coordination): No Code: 33003 (12+)
[2016-06-16] MEDS: PEG-ELECTROLYTE 17 GM PACK PO SCH (17:26)
[2016-06-16] MEDS: Aluminum;Magnesium;Simethicone 30 ML UDC PO PRN (20:20)
[2016-06-16] MEDS: GABAPENTIN 300 MG CAP PO SCH (21:55)
[2016-06-17] MEDS: HYDROmorphone 1 MG INJECTION IV SCH ×13 (00:03→23:57)
[2016-06-17] MEDS: DIAZEPAM 10 MG/2 ML TUBEX IV PRN ×3 (01:03→23:57)
[2016-06-17] MEDS: OXYCODONE (OxyCONTIN) 10 MG TAB PO SCH ×3 (06:11→20:47)
[2016-06-17] MEDS: METAXALONE 800 MG TAB PO PRN (06:11)
[2016-06-17] MEDS: CEFTRIAXONE 2 GM in D5W 100 ML IV SCH (06:12)
[2016-06-17] MEDS: TRAMADOL HCL 50 MG TAB PO SCH ×3 (06:12→23:58)
[2016-06-17] MEDS: SODIUM CHLORIDE 0.9% 3 ML FLUSH FLUSH SCH ×2 (06:12→17:55)
[2016-06-17] MEDS: Aluminum;Magnesium;Simethicone 30 ML UDC PO PRN (07:23)
[2016-06-17] MEDS: Docusate Sodium 100 MG CAP PO SCH ×3 (08:25→20:47)
[2016-06-17] MEDS: TAMSULOSIN HCL 0.4 MG CAP PO SCH (08:25)
[2016-06-17] MEDS: [UNRECOGNIZED DRUG - OTHER] PO SCH ×2 (08:26→11:18)
--- NOTE | 2016-06-17 09:35 | PCM.ORTHBL ---
- Subjective Hospital Day #: 7 Daily Assessment - Patient: Reports: Awake Alert Oriented x4, Feels better, Still having pain, Pain is less, Tolerating Regular Diet, Afebrile, Ambulating with Physical Therapist, No Bowel Movement. Denies: Shortness of breath, Nausea , Vomiting - Objective / Physical Exam Vital Signs: Temperature: 98.8 F (06/17/16 07:00) HR: 86 (06/17/16 08:32)RR: 16 (06/17/16 07: 00) BP: 114/84 (06/17/16 08:00)Pulse Ox: 94 (06/17/16 08:00) General: Alert, Oriented x3, Cooperative, No acute distress, Well appearing Musculoskeletal / Extremities: 2 plus Dorsalis Pedis Pulse. negative: Tenderness (no calf tenderness) Neurological: Positive Sensation First Dorsal Web Space, Sensation to light touch intact, Extensor Hallicus Longus Intact, Flexor Hallicus Longus Intact, Dorsiflexion Intact, Plantarflexion Intact - Assessment and Plan (1) Acute low back pain Acute M54.5 - LOW BACK PAIN Present on Admission: Yes Plan: Patient feeling better today Continue pain management Continue antibiotics. Awaiting PICC line placement TLSO brace in room and awaiting to be fit to patient DC plan for rehab
[2016-06-17] MEDS ORDERED: NS IV ONE (10:00)
[2016-06-17] MEDS ORDERED: CHLORPROMAZINE IV ONE (10:00)
[2016-06-17] MEDS: Fluconazole 200 mg in NS 200 MG/100 ML ML IV SCH (11:24)
[2016-06-17] MEDS: PEG-ELECTROLYTE 17 GM PACK PO SCH (11:24)
[2016-06-17 15:21] VITALS: BMI 24.1
--- NOTE | 2016-06-17 20:32 | GENMEDPROG ---
Chief Complaint: discitis,muscle spasms /acute back pain Currently: Reports: Constipation, Other (SEVERE MUSCLE SPASMS AND BACK PAIN; patient nauseated, unable to eat). Denies: Matt PT/OT, Ambulating DVT Prophylaxis: Yes - Physical Examination Vital Signs and I&O: Last Vital Signs Temp 99.3 F 06/17/16 19:00 Pulse 87 06/17/16 20:00 Resp 18 06/17/16 19:00 BP 107/61 06/17/16 20:00 Pulse Ox 94 06/17/16 14:00 Oxygen Pulse Oxygen Saturation 94 O2 Device Room Air Oxygen Flow Rate 2 Fraction of Inspired Oxygen ( FIO2) Intake & Output 06/14/16 06/15/16 06/16/16 06/17/16 23:59 23:59 23:59 23:59 Intake Total 535 1970 300 5810 Output Total 2100 1575 1975 1550 Balance -1565 -521 -1026 -467 Patient's weight 80.739 kg 80.739 kg General: Alert, Oriented x3, Cooperative, No acute distress, Well appearing HEENT: Normal, PERRLA, EOMI, Anicteric Sclera Neck: Normal Trachea alignment, Normal inspection, No Masses palpable Lymphatics: Normal Respiratory: Normal - CTA Cardiovascular: Regular rate and rhythm, Normal S1, Normal S2 GI: Soft. negative: Normal bowel sounds (diminished) Extremities/Musculoskeletal: Normal pulses, DJD, FROM Skin: Warm,Dry and Intact Neurological: Normal speech, Strength at 5/5 X4 ext, Normal tone, Cranial nerves 3-12 NL, Reflexes 2+ Psych/Mental Status: Appropriate, Normal Affect, Cooperative - Assessment (1) Lumbar discitis Acute M46.46 - DISCITIS, UNSPECIFIED, LUMBAR REGION Comment/Plan: Patient with acute worsening of back pain with the last 2 weeks, but no fevers or chills at home, he did have an infected tooth pulled about a month ago. Now with acute discitis, culture + for Strep mitis. Patient will need 8 weeks of IV Rocephin. Order has been placed for PICC line. Literature reviewed: recommended strict bedrest for first 10 days, back brace to stabilize spine, and use of narcotic analgesics for acute pain relief. (2) Intractable neuropathic pain of lumbosacral origin Acute M54.16 - RADICULOPATHY, LUMBAR REGION Comment/Plan: Still with severe muscle spasm. Will give IV diazepam to help relax muscles. Increase dose of analgesics. Needs back brace to stabilize spine. Discuss with orthopedics. Will place on bedrest for the next 5-7 days until patient's pain is under better control. (3) Muscle spasm of back Acute M62.830 - MUSCLE SPASM OF BACK Comment/Plan: Will give IV diazepam to help relax muscles. Increase dose of analgesics. Will continue analgesics and add antispasmodics. (4) Acute low back pain Acute M54.5 - LOW BACK PAIN Comment/Plan: Per current literature it is better to keep patient at bedrest for first 7-10 days and stabilize the spine with a brace. Use adequate analgesia. Case Care Discussed with: Patient, Nursing Staff Education/Counseling Given To: Patient Education/Counseling Given Regarding: Diagnosis, Treatment, Prognosis Code: [id number] (12+)
[2016-06-17] MEDS: GABAPENTIN 300 MG CAP PO SCH (20:46)
[2016-06-17] MEDS: CHLORHEXIDINE (HIBICLENS) 4 OZ BOTTLE TOP SCH (20:47)
[2016-06-18] MEDS: HYDROmorphone 1 MG INJECTION IV SCH ×12 (01:51→22:17)
[2016-06-18] MEDS: OXYCODONE (OxyCONTIN) 10 MG TAB PO SCH ×3 (06:11→20:12)
[2016-06-18] MEDS: CEFTRIAXONE 2 GM in D5W 100 ML IV SCH (06:11)
[2016-06-18] MEDS: DIAZEPAM 10 MG/2 ML TUBEX IV PRN ×3 (06:11→19:13)
[2016-06-18] MEDS: SODIUM CHLORIDE 0.9% 3 ML FLUSH FLUSH SCH ×2 (06:24→16:31)
[2016-06-18] MEDS: TRAMADOL HCL 50 MG TAB PO SCH ×3 (06:24→22:19)
--- NOTE | 2016-06-18 07:13 | PCM.ORTHBL ---
- Subjective Hospital Day #: 8 Daily Assessment - Patient: Reports: No new complaints, Awake Alert Oriented x4 , Still having pain, Pain is less, Tolerating Regular Diet, Afebrile, Ambulating with Physical Therapist (He did have some improved ambulation with PT with back brace yesterday), Nausea. Denies: Shortness of breath, Vomiting, No Bowel Movement - Objective / Physical Exam Vital Signs: Temperature: 98.9 F (06/18/16 03:00) HR: 85 (06/18/16 06:00)RR: 18 (06/18/16 02: 00) BP: 97/52 (06/18/16 06:00)Pulse Ox: 97 (06/18/16 05:00) General: Alert, Oriented x3, Cooperative, No acute distress, Well appearing Musculoskeletal / Extremities: 2 plus Dorsalis Pedis Pulse. negative: Tenderness (no calf tenderness) Neurological: Positive Sensation First Dorsal Web Space, Sensation to light touch intact, Extensor Hallicus Longus Intact, Flexor Hallicus Longus Intact, Dorsiflexion Intact, Plantarflexion Intact - Assessment and Plan (1) Acute low back pain Acute M54.5 - LOW BACK PAIN Present on Admission: Yes Plan: Continue pain management Progressive weightbearing with PT. Continue TLSO brace with ambulation Continue IV antibiotics per medicine. Plan is for 8 weeks IV Rocephin. PICC line placement. D/C planning once medically stable.
[2016-06-18] MEDS: TAMSULOSIN HCL 0.4 MG CAP PO SCH (07:24)
[2016-06-18] MEDS: PEG-ELECTROLYTE 17 GM PACK PO SCH (07:24)
[2016-06-18] MEDS: Docusate Sodium 100 MG CAP PO SCH ×2 (07:24→20:13)
[2016-06-18] MEDS: OXYCODONE HCL 5 MG TABLET PO PRN (11:18)
[2016-06-18] MEDS: Fluconazole 200 mg in NS 200 MG/100 ML ML IV SCH (11:20)
[2016-06-18] MEDS ORDERED: GABAPENTIN 300 MG CAP PO SCH (16:00)
[2016-06-18] MEDS: GABAPENTIN 300 MG CAP PO SCH ×2 (16:27→20:12)
[2016-06-18] MEDS: MAGNESIUM HYDROXIDE 30 ML BOTTLE PO PRN (19:13)
[2016-06-18] MEDS: ZOLPIDEM TARTRATE 5 MG TAB PO PRN (20:14)
[2016-06-18] MEDS: CHLORHEXIDINE (HIBICLENS) 4 OZ BOTTLE TOP SCH (20:19)
--- NOTE | 2016-06-18 20:46 | GENMEDPROG ---
Chief Complaint: discitis, muscle spasm, back pain Currently: Reports: Constipation, Other (SEVERE MUSCLE SPASMS AND BACK PAIN; patient nauseated, unable to eat). Denies: Matt PT/OT, Ambulating DVT Prophylaxis: Yes - Physical Examination Vital Signs and I&O: Last Vital Signs Temp 97.7 F 06/18/16 14:00 Pulse 98 06/18/16 20:20 Resp 20 06/18/16 15:00 BP 123/75 06/18/16 18:00 Pulse Ox 97 06/18/16 17:00 Oxygen Pulse Oxygen Saturation 97 O2 Device Room Air Oxygen Flow Rate 2 Fraction of Inspired Oxygen ( FIO2) Intake & Output 06/15/16 06/16/16 06/17/16 06/18/16 23:59 23:59 23:59 23:59 Intake Total 0870 903 4132 797 Output Total 1571 1078 1907 1650 [facility] [phone] Patient's weight 80.739 kg General: Alert, Oriented x3, Cooperative, No acute distress, Well appearing HEENT: PERRLA, EOMI, Anicteric Sclera, Mucous membr. moist/pink Neck: Non-tender, Full range of motion, Normal Trachea alignment, Normal inspection, No Masses palpable Lymphatics: Normal Respiratory: Normal - CTA Cardiovascular: Regular rate and rhythm, Normal S1, Normal S2, Good Pedal Pulses , PMI Not Lateralized, Chest Non Tender GI: Normal bowel sounds, Soft, Non tender Extremities/Musculoskeletal: Normal pulses, DJD, Other (less guarding) Skin: Warm,Dry and Intact Neurological: Normal speech, Normal tone, Cranial nerves 3-12 NL, Drowsy Psych/Mental Status: Appropriate, Normal Affect, Cooperative, Drowsy, Somnolent Patient is cooperating with physical therapy, tries to get up for a short time each day. Is able to move his legs. No loss of reflexes. Lab/DI/Studies Reviewed: Blood cultures: all specimens are negative to date Tissue culture: (from back) Strep mitis - Assessment (1) Lumbar discitis Acute M46.46 - DISCITIS, UNSPECIFIED, LUMBAR REGION Comment/Plan: Patient with acute worsening of back pain with the last 2 weeks, but no fevers or chills at home, he did have an infected tooth pulled about a month ago. Now with acute discitis, culture + for Strep mitis. Patient will need 8 weeks of IV Rocephin. Order has been placed for PICC line. Literature reviewed: recommended strict bedrest for first 10 days, back brace to stabilize spine, and use of narcotic analgesics for acute pain relief. (2) Intractable neuropathic pain of lumbosacral origin Acute M54.16 - RADICULOPATHY, LUMBAR REGION Comment/Plan: Still with severe muscle spasm. Will give IV diazepam to help relax muscles. Increase dose of analgesics. Needs back brace to stabilize spine. Discussed with orthopedics. Is beginning to do limited physical therapy. PICC line has not been placed yet. (3) Muscle spasm of back Acute M62.830 - MUSCLE SPASM OF BACK Comment/Plan: Will give IV diazepam to help relax muscles. Increase dose of analgesics. Will continue analgesics and add antispasmodics. (4) Acute low back pain Acute M54.5 - LOW BACK PAIN Comment/Plan: Per current literature it is better to keep patient at bedrest for first 7-10 days and stabilize the spine with a brace. Use adequate analgesia. - Plan Patient will need rehabilitation in SNF for 3-6 weeks. Have advised discharge planning & they are working with his insurance on approval. Case Care Discussed with: Patient, Nursing Staff, Resource Management Education/Counseling Given To: Patient Education/Counseling Given Regarding: Diagnosis, Treatment, Prognosis Total Time: 30 min Critical Care: No Couseling Time (>50% in counseling/coordination): Yes Code: 38421 (12+)
[2016-06-18] MEDS: FENTANYL 100 MCG/2 ML VIAL IV PRN (22:17)
[2016-06-19] MEDS: HYDROmorphone 1 MG INJECTION IV SCH ×12 (00:28→22:05)
[2016-06-19] MEDS: DIAZEPAM 10 MG/2 ML TUBEX IV PRN ×3 (04:05→18:05)
[2016-06-19] MEDS: TRAMADOL HCL 50 MG TAB PO SCH ×3 (05:59→22:13)
[2016-06-19] MEDS: SODIUM CHLORIDE 0.9% 3 ML FLUSH FLUSH SCH ×2 (05:59→18:05)
[2016-06-19] MEDS: CEFTRIAXONE 2 GM in D5W 100 ML IV SCH (05:59)
[2016-06-19] MEDS: OXYCODONE (OxyCONTIN) 10 MG TAB PO SCH ×3 (05:59→22:05)
[2016-06-19] MEDS: GABAPENTIN 300 MG CAP PO SCH ×3 (06:00→20:13)
--- NOTE | 2016-06-19 07:35 | PCM.ORTHBL ---
- Subjective Hospital Day #: 9 Daily Assessment - Patient: Reports: No new complaints, Awake Alert Oriented x4 , Feels better, Still having pain, Tolerating Regular Diet, Afebrile, Ambulating with Physical Therapist, Flatus, No Bowel Movement. Denies: Shortness of breath, Nausea, Vomiting - Objective / Physical Exam Vital Signs: Temperature: 98.3 F (06/19/16 03:00) HR: 97 (06/19/16 06:00)RR: 18 (06/19/16 06: 00) BP: 107/69 (06/19/16 06:00)Pulse Ox: 97 (06/19/16 06:00) General: Alert, Oriented x3, Cooperative, No acute distress, Well appearing Musculoskeletal / Extremities: 2 plus Dorsalis Pedis Pulse. negative: Tenderness (no calf tenderness) Neurological: Positive Sensation First Dorsal Web Space, Sensation to light touch intact, Extensor Hallicus Longus Intact, Flexor Hallicus Longus Intact, Dorsiflexion Intact, Plantarflexion Intact - Assessment and Plan (1) Acute low back pain Acute M54.5 - LOW BACK PAIN Present on Admission: Yes Plan: Continue pain management Continue IV antibiotics. PICC line Continue progressive ambulation with PT in TLSO brace D/C plan for rehab
[2016-06-19] MEDS: Docusate Sodium 100 MG CAP PO SCH ×2 (08:40→20:14)
[2016-06-19] MEDS: TAMSULOSIN HCL 0.4 MG CAP PO SCH (08:40)
[2016-06-19] MEDS: FLUCONAZOLE 150 MG TAB PO SCH (08:40)
--- NOTE | 2016-06-19 09:39 | GENMEDPROG ---
Chief Complaint: On IV antibiotics for diskitis Subjective Note: Still having constipation. Feels that his pain is well controlled at baseline but is still having issues with the severe muscle spasms which cause him to cry out Current Medication List: Reviewed Currently: Reports: Constipation, Matt PT/OT, Ambulating DVT Prophylaxis: Yes - Physical Examination Vital Signs and I&O: Last Vital Signs Temp 98.6 F 06/19/16 07:00 Pulse 82 06/19/16 08:35 Resp 18 06/19/16 07:00 BP 108/69 06/19/16 08:00 Pulse Ox 95 06/19/16 07:00 Oxygen Pulse Oxygen Saturation 95 O2 Device Room Air Oxygen Flow Rate 2 Fraction of Inspired Oxygen ( FIO2) Intake & Output 06/16/16 06/17/16 06/18/16 06/19/16 23:59 23:59 23:59 23:59 Intake Total 949 1368 797 120 Output Total 1974 1900 2200 1000 Balance -[phone] Patient's weight 80.739 kg General: Alert, Oriented x3, Cooperative, Mild distress (When he has spasms), Well appearing HEENT: Anicteric Sclera, Mucous membr. moist/pink Neck: Normal inspection Lymphatics: Normal Respiratory: Normal - CTA Cardiovascular: Regular rate and rhythm, No Gallops,Rubs/Murmurs, Good Pedal Pulses GI: Soft, Non tender, Other (Decreased bowel sounds) Extremities/Musculoskeletal: Normal pulses, Other (Dorsiflexion and plantar flexion of his feet are intact). negative: Edema Skin: Warm,Dry and Intact Neurological: Normal speech, Strength at 5/5 X4 ext Psych/Mental Status: Appropriate, Normal Affect - Assessment (1) Lumbar discitis Acute M46.46 - DISCITIS, UNSPECIFIED, LUMBAR REGION Comment/Plan: Patient with acute worsening of back pain with the last 2 weeks, but no fevers or chills at home, he did have an infected tooth pulled about a month ago. Now with acute discitis, culture + for Strep mitis. Patient will need 8 weeks of IV Rocephin. Order has been placed for PICC line. Literature reviewed: recommended strict bedrest for first 10 days, back brace to stabilize spine, and use of narcotic analgesics for acute pain relief. (2) Intractable neuropathic pain of lumbosacral origin Acute M54.16 - RADICULOPATHY, LUMBAR REGION Comment/Plan: Still with severe muscle spasm. Will give IV diazepam to help relax muscles. Increase dose of analgesics. Needs back brace to stabilize spine. Is beginning to do limited physical therapy. PICC line has not been placed yet. Appreciate Orthopedic input (3) Muscle spasm of back Acute M62.830 - MUSCLE SPASM OF BACK Comment/Plan: Will give IV diazepam to help relax muscles. Increase dose of analgesics. Will continue analgesics and add antispasmodics. (4) Acute low back pain Acute M54.5 - LOW BACK PAIN Comment/Plan: Per current literature it is better to keep patient at bedrest for first 7-10 days and stabilize the spine with a brace. Use adequate analgesia. - Plan Encourage PT. Will change laxatives. Case Care Discussed with: Patient, Nursing Staff Education/Counseling Given To: Patient Education/Counseling Given Regarding: Diagnosis, Treatment, Prognosis Total Time: 35 minutes Critical Care: No Code: 21302 (12+)
[2016-06-19] MEDS: PEG-ELECTROLYTE 17 GM PACK PO SCH (12:05)
[2016-06-19] MEDS ORDERED: LIDOCAINE 1% 30 ML VIAL (PRESERVATIVE FREE) ONE (16:08)
--- NOTE | 2016-06-19 17:15 | DIRPT ---
CLINICAL DATA: 55-year-old male with a history of osteomyelitis discitis. Referred for PICC EXAM: PICC PLACEMENT WITH ULTRASOUND AND FLUOROSCOPY FLUOROSCOPY TIME: Zero seconds TECHNIQUE: After written informed consent was obtained, patient was placed in the supine position on angiographic table. Patency of the right basilic vein was confirmed with ultrasound with image documentation. An appropriate skin site was determined. Skin site was marked. Region was prepped using maximum barrier technique including cap and mask, sterile gown, sterile gloves, large sterile sheet, and Chlorhexidine as cutaneous antisepsis. The region was infiltrated locally with 1% lidocaine. Under real-time ultrasound guidance, the right basilic vein was accessed with a 21 gauge micropuncture needle; the needle tip within the vein was confirmed with ultrasound image documentation. Needle exchanged over a 018 guidewire for a peel-away sheath, through which a 5-Greek double-lumen power injectable PICC trimmed to 35cm was advanced, positioned with its tip near the cavoatrial junction. Spot chest radiograph confirms appropriate catheter position. Catheter was flushed per protocol and secured externally with a StatLock. The patient tolerated procedure well, with no immediate complication. COMPLICATIONS: None IMPRESSION: Status post placement of right upper extremity basilic vein PICC measuring 35 cm. Catheter ready for use. Signed, Jordan Laureano DO [facility] Electronically Signed By: Jordan Laureano D.O. On: 06/19/2016 17:12
--- NOTE | 2016-06-19 19:32 | DIRPT ---
CLINICAL DATA: PICC placement. EXAM: PORTABLE CHEST 1 VIEW COMPARISON: 07/06/2005. FINDINGS: Right PICC tip projects in the mid superior vena cava. No pneumothorax. Lungs are clear. Right hemidiaphragm is elevated with. Heart, mediastinum and caitlin are unremarkable. IMPRESSION: 1. Right PICC tip projects in the mid superior vena cava. 2. No acute cardiopulmonary disease. Electronically Signed By: Adis Walters M.D. On: 06/19/2016 19:29
[2016-06-19] MEDS: ZOLPIDEM TARTRATE 5 MG TAB PO PRN (20:14)
[2016-06-19] MEDS: CHLORHEXIDINE (HIBICLENS) 4 OZ BOTTLE TOP SCH (21:42)
[2016-06-20] MEDS: HYDROmorphone 1 MG INJECTION IV SCH ×12 (00:19→22:28)
[2016-06-20] MEDS: GABAPENTIN 300 MG CAP PO SCH ×3 (05:27→20:20)
[2016-06-20] MEDS: OXYCODONE (OxyCONTIN) 10 MG TAB PO SCH ×3 (05:27→20:59)
[2016-06-20] MEDS: CEFTRIAXONE 2 GM in D5W 100 ML IV SCH (05:28)
[2016-06-20] MEDS: DIAZEPAM 10 MG/2 ML TUBEX IV PRN ×3 (05:39→21:29)
[2016-06-20] MEDS: SODIUM CHLORIDE 0.9% 3 ML FLUSH FLUSH SCH ×2 (05:40→17:02)
[2016-06-20] MEDS: TRAMADOL HCL 50 MG TAB PO SCH ×3 (05:48→21:52)
--- NOTE | 2016-06-20 08:13 | GENMEDPROG ---
Subjective Note: Had PICC line placed yesterday. IS TOLERATING FOOD. Is still having constipation and back spasms. Currently: Reports: Constipation, Matt PT/OT, Ambulating. Denies: Cough, LANE, SOB, Fever/Chills DVT Prophylaxis: Yes - Physical Examination Vital Signs and I&O: Last Vital Signs Temp 98.5 F 06/20/16 07:00 Pulse 84 06/20/16 08:00 Resp 18 06/20/16 06:00 BP 105/65 06/20/16 08:00 Pulse Ox 97 06/20/16 02:00 Oxygen Pulse Oxygen Saturation 97 O2 Device Room Air Oxygen Flow Rate 2 Fraction of Inspired Oxygen ( FIO2) Intake & Output 06/17/16 06/18/16 06/19/16 06/20/16 23:59 23:59 23:59 23:59 Intake Total 1368 797 542 193 Output Total 1900 2200 2850 775 [facility] -[phone] Patient's weight 80.739 kg General: Alert, Oriented x3, Cooperative, Mild distress (When he has spasms), Well appearing HEENT: Anicteric Sclera, Mucous membr. moist/pink Neck: Normal inspection Lymphatics: Normal Respiratory: Normal - CTA Cardiovascular: Regular rate and rhythm, No Gallops,Rubs/Murmurs, Good Pedal Pulses GI: Soft, Non tender, Other (Decreased bowel sounds) Extremities/Musculoskeletal: Normal pulses, Other (Dorsiflexion and plantar flexion of his feet are intact). negative: Edema Skin: Warm,Dry and Intact Neurological: Normal speech, Strength at 5/5 X4 ext Psych/Mental Status: Appropriate, Normal Affect - Assessment (1) Lumbar discitis Acute M46.46 - DISCITIS, UNSPECIFIED, LUMBAR REGION Comment/Plan: IV antibiotics started 06/12/2016. Has been on Rocephin since June 14. Is progressing very slowly. Will ask pharmacy to help consolidate his pain medications and try to get him a long-acting oral medication. Would also like to consolidate his antispasm medication. (2) Intractable neuropathic pain of lumbosacral origin Acute M54.16 - RADICULOPATHY, LUMBAR REGION Comment/Plan: Still on IV diazepam. Will work with pharmacy to try to convert to pills. (3) Muscle spasm of back Acute M62.830 - MUSCLE SPASM OF BACK Comment/Plan: See above. (4) Acute low back pain Acute M54.5 - LOW BACK PAIN Comment/Plan: Patient has chronic lower back pain now with an acute exacerbation. PT and Orthopedics are involved. Patient has requested that Dr. Flo Gillespie who he saw in the be consulted by telephone to see if he would evaluate his MRI. I explained to the patient that that would be unlikely given that Dr. Gillespie would not be able see him personally. I do not know if he is x ray control equipment repairer this weekend. The patient may want to call his office on wednesday. I explained to him again that this is a medical problem and not a neurosurgical problem. (5) Urinary retention Acute R33.9 - RETENTION OF URINE, UNSPECIFIED Comment/Plan: Patient had a Valladares placed on admission because he had decreased bladder emptying and his full bladder increased his back pain. He was routinely on Flomax prior to admission. I am going to increase his Flomax to twice daily and begin to see if we can discontinue the Valladares in the next few days (6) Constipation due to opioid therapy Acute K59.03 - DRUG INDUCED CONSTIPATION; T40.2X5A - ADVERSE EFFECT OF OTHER OPIOIDS, INITIAL ENCOUNTER Comment/Plan: Patient is on MiraLax once a day and Colace. Will increase his MiraLax and add Dulcolax suppositories. Case Care Discussed with: Patient, Nursing Staff Education/Counseling Given To: Patient Education/Counseling Given Regarding: Diagnosis, Treatment, Prognosis Total Time: 45 minutes Critical Care: No Couseling Time (>50% in counseling/coordination): No Code: 74815 (12+)
--- NOTE | 2016-06-20 08:15 | PCM.ORTHBL ---
- Subjective Hospital Day #: 10 Daily Assessment - Patient: Reports: No new complaints, Awake Alert Oriented x4 , Still having pain, Tolerating Regular Diet, Afebrile, Ambulating with Physical Therapist, No Bowel Movement, Other (Continues to have spasms intermittently. Denies chest pain.). Denies: Shortness of breath, Nausea, Vomiting - Objective / Physical Exam Vital Signs: Temperature: 98.5 F (06/20/16 07:00) HR: 84 (06/20/16 08:00)RR: 18 (06/20/16 06: 00) BP: 105/65 (06/20/16 08:00)Pulse Ox: 97 (06/20/16 02:00) General: Alert, Oriented x3, Cooperative, No acute distress, Well appearing Musculoskeletal / Extremities: 2 plus Dorsalis Pedis Pulse. negative: Tenderness (no calf tenderness) Neurological: Positive Sensation First Dorsal Web Space, Sensation to light touch intact, Extensor Hallicus Longus Intact, Flexor Hallicus Longus Intact, Dorsiflexion Intact, Plantarflexion Intact - Assessment and Plan (1) Acute low back pain Acute M54.5 - LOW BACK PAIN Present on Admission: Yes Plan: Continue pain management Continue IV antibiotics. PICC line has been placed Continues to have constipation, Laxatives have been changed Progressive ambulation with PT in TLSO brace D/C plan for rehab
[2016-06-20] MEDS: FLUCONAZOLE 150 MG TAB PO SCH (08:32)
[2016-06-20] MEDS: TAMSULOSIN HCL 0.4 MG CAP PO SCH ×3 (08:32→20:20)
[2016-06-20] MEDS: Docusate Sodium 100 MG CAP PO SCH (08:33)
[2016-06-20] MEDS ORDERED: PEG-ELECTROLYTE 17 GM PACK PO PRN (10:24)
[2016-06-20] MEDS ORDERED: BISACODYL 10 MG SUPP PR PRN (10:28)
[2016-06-20] MEDS: DOCUSATE-SENNA CONCENTRATE TAB PO SCH ×2 (12:23→20:59)
--- NOTE | 2016-06-20 15:20 | DIRPT ---
CLINICAL DATA: Lumbar discitis. Worsening left leg weakness. EXAM: MRI LUMBAR SPINE WITHOUT CONTRAST TECHNIQUE: Multiplanar, multisequence MR imaging of the lumbar spine was performed. No intravenous contrast was administered. COMPARISON: 06/10/2016 FINDINGS: Vertebral alignment is unchanged, with trace anterolisthesis of L4 on L5 and trace retrolisthesis of L5 on S1 again seen. Abnormal fluid signal is again seen in the primarily left aspect of the L2-3 disc space. There is progressive disc space collapse since the prior MRI, and extensive edema in the adjacent L2 and L3 vertebral bodies has increased with increased edema extending into the left L3 pedicle. Paravertebral soft tissue inflammation has also increased. Left paracentral/ subarticular ventral epidural fluid collection/phlegmon extending from the L2-3 disc space inferiorly behind the L3 vertebral body has increased in size from the prior study, now measuring approximately 7 x 5 x 14 mm (transverse by AP by craniocaudal). This contributes to increased left lateral recess stenosis, potentially affecting the left L3 nerve root. STIR hyperintensity and height loss involving the discs at L4-5 and L5-S1 are unchanged. There is mild endplate edema at L4-5 and minimal endplate edema at L5-S1, also with some fatty (Modic type 2) endplate changes, stable from the prior study. Edema associated with right-sided facet arthritis at L3-4 and L4-5 is unchanged. The conus medullaris is normal in signal and terminates at L1. No paraspinal fluid collection is identified. L1-2: Mild disc bulging a asymmetric to the right without stenosis, unchanged. L2-3: Disc bulging, endplate spurring, and mild facet and ligamentum flavum hypertrophy result in mild spinal stenosis and moderate left neural foraminal stenosis, unchanged. Increased size of left subarticular ventral epidural process results in increased left lateral recess stenosis as described above. L3-4: Disc bulging asymmetric to the right and mild facet and ligamentum flavum hypertrophy result in mild spinal stenosis, mild right lateral recess stenosis, and [id number] right and mild left neural foraminal stenosis, unchanged. L4-5: Disc bulging and moderate facet and ligamentum flavum hypertrophy result in mild spinal stenosis, mild bilateral lateral recess stenosis, and [id number] right and mild left neural foraminal stenosis, unchanged. L5-S1: Listhesis, endplate spurring, and mild facet hypertrophy result in [id number] right neural foraminal stenosis without spinal stenosis, unchanged. IMPRESSION: 1. Progressive disc space height loss and marrow edema at L2-3 consistent with worsening discitis/osteomyelitis. Ventral epidural phlegmon/small abscess has mildly increased in size and results in increased left lateral recess stenosis, potentially affecting the left L3 nerve root. 2. Stable disc and endplate signal changes at L4-5 and L5-S1, favored to be degenerative rather than infectious. 3. Unchanged disc and facet degeneration elsewhere as above. Electronically Signed By: Laurent Perry M.D. On: 06/20/2016 15:18
[2016-06-20] MEDS: CHLORHEXIDINE (HIBICLENS) 4 OZ BOTTLE TOP SCH (20:43)
[2016-06-20] MEDS: ZOLPIDEM TARTRATE 5 MG TAB PO PRN (20:59)
[2016-06-20] MEDS: METAXALONE 800 MG TAB PO PRN (23:21)
[2016-06-21] MEDS: HYDROmorphone 1 MG INJECTION IV SCH ×12 (00:10→22:09)
[2016-06-21] MEDS: OXYCODONE (OxyCONTIN) 10 MG TAB PO SCH ×3 (06:07→22:09)
[2016-06-21] MEDS: CEFTRIAXONE 2 GM in D5W 100 ML IV SCH (06:07)
[2016-06-21] MEDS: GABAPENTIN 300 MG CAP PO SCH ×3 (06:08→20:06)
[2016-06-21] MEDS: SODIUM CHLORIDE 0.9% 3 ML FLUSH FLUSH SCH ×2 (06:08→18:07)
[2016-06-21] MEDS: TRAMADOL HCL 50 MG TAB PO SCH ×3 (06:20→21:54)
[2016-06-21] MEDS: TAMSULOSIN HCL 0.4 MG CAP PO SCH ×2 (08:03→20:06)
[2016-06-21] MEDS: FLUCONAZOLE 150 MG TAB PO SCH (08:03)
[2016-06-21] MEDS: DOCUSATE-SENNA CONCENTRATE TAB PO SCH ×2 (08:04→20:06)
--- NOTE | 2016-06-21 08:25 | PCM.ORTHBL ---
- Subjective Hospital Day #: 11 Daily Assessment - Patient: Reports: No new complaints, Awake Alert Oriented x4 , Still having pain, Tolerating Regular Diet, Afebrile, Ambulating with Physical Therapist, No Bowel Movement, Other (Denies chest pain). Denies: Shortness of breath, Nausea, Vomiting - Objective / Physical Exam Vital Signs: Temperature: 98.2 F (06/21/16 03:00) HR: 96 (06/21/16 08:14)RR: 18 (06/21/16 06: 00) BP: 115/63 (06/21/16 06:00)Pulse Ox: 96 (06/21/16 02:00) General: Alert, Oriented x3, Cooperative, No acute distress, Well appearing Musculoskeletal / Extremities: 2 plus Dorsalis Pedis Pulse. negative: Tenderness (no calf tenderness) Neurological: Positive Sensation First Dorsal Web Space, Sensation to light touch intact (sensation is intact distally, although diminished, primarily along the lateral lower leg), Extensor Hallicus Longus Intact, Flexor Hallicus Longus Intact, Dorsiflexion Intact, Plantarflexion Intact - Assessment and Plan (1) Acute low back pain Acute M54.5 - LOW BACK PAIN Present on Admission: Yes Plan: Most recent MRI has been reviewed. No evidence for surgical intervention at this time. This remains a medical issue currently. Due to changes however, would recommend consideration for transfer to tertiary facility with ID support. Continue IV antibiotics. Continue PT with progressive ambulation in TLSO brace Constipation persists Continue pain management.
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
[2016-06-21] MEDS: ZOLPIDEM TARTRATE 5 MG TAB PO PRN (22:09)
[2016-06-21] MEDS: CHLORHEXIDINE (HIBICLENS) 4 OZ BOTTLE TOP SCH (22:25)
[2016-06-22] MEDS: HYDROmorphone 1 MG INJECTION IV SCH ×7 (00:10→11:05)
[2016-06-22] MEDS: CEFTRIAXONE 2 GM in D5W 100 ML IV SCH (05:57)
[2016-06-22] MEDS: OXYCODONE (OxyCONTIN) 10 MG TAB PO SCH (05:57)
[2016-06-22] MEDS: SODIUM CHLORIDE 0.9% 3 ML FLUSH FLUSH SCH (05:57)
[2016-06-22] MEDS: GABAPENTIN 300 MG CAP PO SCH (05:58)
[2016-06-22] MEDS: TRAMADOL HCL 50 MG TAB PO SCH (06:05)
[2016-06-22] MEDS: DOCUSATE-SENNA CONCENTRATE TAB PO SCH (08:01)
[2016-06-22] MEDS: TAMSULOSIN HCL 0.4 MG CAP PO SCH (08:01)
[2016-06-22 11:04] VITALS: BP 106/64; PULSE 96; TEMP 98.5
[2016-06-22] MEDS: DIAZEPAM 10 MG/2 ML TUBEX IV PRN (11:05)
== END 2016-06-22 11:15 | disposition home or self-care (01) | DRG 519 ==
LOC: ED 16:35 → MPS3 20:57 → OBSVTOIN 06-10 17:31 → ICU 06-14 19:13
PROVIDERS: ADMIT Orthopaedic Surgery; ATTEND Family Medicine
PROC: 009Y3ZX Drainage of Lumbar Spinal Cord, Percutaneous Approach, Diagnostic (ICD-10-PCS; 2016-06-11)
PROC: 02HV33Z Insertion of Infusion Device into Superior Vena Cava, Percutaneous Approach (ICD-10-PCS; principal; 2016-06-19)
PROC: B5181ZA Fluoroscopy of Superior Vena Cava using Low Osmolar Contrast, Guidance (ICD-10-PCS; 2016-06-19)
PROC: B548ZZA Ultrasonography of Superior Vena Cava, Guidance (ICD-10-PCS; 2016-06-19)
DX: M46.46 Discitis, unspecified, lumbar region (principal); M46.26 Osteomyelitis of vertebra, lumbar region; M62.830 Muscle spasm of back; R33.9 Retention of urine, unspecified; K59.03 Drug induced constipation; T40.2X5A Adverse effect of other opioids, initial encounter; Y92.239 Unspecified place in hospital as the place of occurrence of the external cause; F41.9 Anxiety disorder, unspecified; N40.1 Benign prostatic hyperplasia with lower urinary tract symptoms; R39.14 Feeling of incomplete bladder emptying; Z79.899 Other long term (current) drug therapy; B95.4 Other streptococcus as the cause of diseases classified elsewhere
CPT/HCPCS: 20610; 36415; 36569; 51798; 71010; 72131; 72148; 72157; 72158; 76937; 77001; 77002; 80048; 80053; 80202; 80301; 81001; 83036; 85025; 85027; 85610; 85651; 86140; 87040; 87070; 87075; 87077; 87186; 87641; 90656; 93306; 96361; 96374; 96375; 96376; 97164; 99284; A9577; G0378; J0696; J1170; J1200; J1450; J2001; J2250; J2405; J2550; J3010; J3230; J3360; J3370; J3490; J7030; J7060